=== PATIENT | male | born 1980 | race Caucasian/White ===

== ENCOUNTER 2017-06-07 03:34 | Emergency (ER) | payer OTHER ==
[2017-06-07] MEDS ORDERED: PREGABALIN 25 MG CAP PO ONE (03:41)
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
[2017-06-07 04:13] LABS: % IMMATURE GRANULYOCYTES 0.5 % (0.0-1.1); ABSOLUTE IMMATURE GRANULOCYTES 0.05 10^3/uL (0.00-0.10); ADD DIFF? NO; ADD MORPH? NO; ADD SCAN? NO; ATYPICAL LYMPHOCYTE FLAG 40 (0-99); FRAGMENT RBC FLAG 0 (0-99); HEMOGLOBIN 15.4 g/dL (13.7-17.5); LEFT SHIFT FLG 0 (0-99); LIPEMIA HEMOLYSIS FLAG 80 (0-99); MEAN CELL HEMOGLOBIN 29.5 pg (27.9-34.1); MEAN CELL HEMOGLOBIN CONCENTR. 33.5 g/dL (32.4-36.7); MEAN CELL VOLUME 88.1 fL (81.5-99.8); MEAN PLATELET VOLUME 11.4 fL (8.7-11.7); PLATELET CLUMPS FLAG 10 (0-99); PLATELET COUNT 243 10^3/uL (150-400); RED BLOOD CELL COUNT 5.22 10^6/uL (4.40-6.38); RED CELL DISTRIBUTION WIDTH 13.4 % (11.5-15.2)
[2017-06-07 04:22] LABS: ALANINE AMINOTRANSFERASE 49 IU/L (21-72); ALBUMIN 4.9 g/dL (3.5-5.0); ALKALINE PHOSPHATASE 84 IU/L (38-126); ANION GAP 20 mEq/L (8-16); ASPARTATE AMINOTRANSFERASE 29 IU/L (17-59); BILIRUBIN,TOTAL 0.6 mg/dL (0.1-1.4); CALCIUM 9.5 mg/dL (8.5-10.4); CARBON DIOXIDE 20 mEq/l (22-31); CHLORIDE 102 mEq/L (97-110); CREATININE 0.9 mg/dL (0.7-1.3); ETHANOL SERUM 253 mg/dL (0-10); GLOMERULAR FILTRATION RATE > 60; GLUCOSE 101 mg/dL (70-100); POTASSIUM 3.8 mEq/L (3.5-5.2); SODIUM 142 mEq/L (134-144); TOTAL PROTEIN 8.1 g/dL (6.3-8.2)
[2017-06-07 04:31] VITALS: RESP 18
--- NOTE | 2017-06-07 04:57 | CPEKG ---
Heart Rate: 132 RR Interval: 455 P-R Interval: 132 QRSD Interval: 108 QT Interval: 320 QTC Interval: 474 P [place]: 51 QRS [place]: 76 T Wave [place]: 4 EKG Severity - BORDERLINE ECG - EKG Impression: SINUS TACHYCARDIA EKG Impression: BORDERLINE INFERIOR Q WAVES Electronically Signed By: Eric Fung 09-Jun-2017 06:06:24
[2017-06-07 04:58] VITALS: BP 135/102; PULSE 115; TEMP 97.9; O2SAT 95
== END 2017-06-07 05:09 | disposition home or self-care (01) ==
DX: M54.9 Dorsalgia, unspecified (principal); F10.129 Alcohol abuse with intoxication, unspecified
CPT/HCPCS: G0480

== ENCOUNTER 2018-09-07 13:04 | Emergency (ER) | payer MEDICAID, OTHER ==
[2018-09-07 13:17] VITALS: BP 153/104
--- NOTE | 2018-09-07 13:35 | EDPHY ---
H & P Time Seen by Provider: 09/07/18 13:16 HPI/ROS: 38 yo M presents stating he has not been able to get his psychiatric medications -trazodone, cymbalta and adderall since recently moving here. He states nobody takes his medicaid, and even though [facility] is a [facility] I discussed with him that these are medications I do not routinely prescribe from the ED and I feel he needs to have either a primary care or a psychiatrist to get these medications. I offered to give him a short term bridge of the trazodone and cymbalta. He then left the ED immediately stating he would go somewhere else. Past Medical/Surgical History: psychiatric illness Social History: past hx of alcohol abuse recently moved here per pt Smoking Status: Current some day smoker Physical Exam: 38-year-old male, well dressed, conversant Alert and oriented in no acute distress nontoxic appearance, afebrile Atraumatic normocephalic Neck no JVD Lungs no respiratory distress VSS Extremities no cyanosis clubbing edema noted in hands Constitutional: Initial Vital Signs Temperature (C) 36.7 C 09/07/18 13:15 Heart Rate 98 09/07/18 13:15 Respiratory Rate 16 09/07/18 13:15 Blood Pressure 153/104 H 09/07/18 13:15 O2 Sat (%) 99 09/07/18 13:15 O2 Delivery Mode Room Air Allergies/Adverse Reactions: No Known Allergies Allergy (Verified 09/07/18 13:17) Home Medications: Medication Instructions Recorded Cymbalta 06/07/17 Adderall 10 MG (*) 09/07/18 traZODONE 100MG (*) 09/07/18 Medical Decision Making ED Course/Re-evaluation: Pt seen for possible medication refill. Imp/plan psychotropic meds, will need pcp, psychiatry to refill offered a short term bridge, he refused Departure - Departure Disposition: Home, Routine, Self-Care Clinical Impression: Prescription refill Condition: Good Referrals: NONE *PRIMARY CARE P,. [Primary Care Provider] - As per Instructions [facility] [Provider Group] - As per Instructions
== END 2018-09-07 13:25 | disposition home or self-care (01) ==
LOC: CED 13:04
DX: Z76.0 Encounter for issue of repeat prescription (principal); F99 Mental disorder, not otherwise specified